=== PATIENT | female | born 1975 | race Caucasian/White ===

== ENCOUNTER 2025-01-14 08:22 | Emergency (ER) | payer BC ==
[~2025-01-14] VITALS: Ht 170.2 cm; Wt 74.0 kg
[2025-01-14 08:24] VITALS: TEMP 98.5
--- NOTE | 2025-01-14 09:33 | Physician Documentation ---
History of Present Illness Chief Complaint: Flank Pain Stated Complaint: UTI SYMPTOMS Time Seen by MD: 09:16 OK to notify your PCP?: Yes Source: patient Mode of Arrival: POV Exam Limitations: no limitations HPI 49-year-old female who is here with right flank pain that started this morning. She states that the pain initially started as contractions states now pain is more constant. Also reports nausea that started this morning and just had a single episode of vomiting in the bathroom here. Patient also reports pain at urethra with urination which started last night and she states she feels that her urine stream is decreased. No prior history of kidney stones. No fever, chills, diarrhea, constipation, cp, sob. Last Menstrual Period: Jan 02, 2025 Medication Reconciliation Allergies: Coded Allergies: No Known Allergies (Unverified , 01/14/25) Past Medical History Last Menstrual Period: Jan 02, 2025 Review of Systems All Other Systems at this time: Reviewed and Negative Physical Exam Vital Signs: Temperature: 98.5, Source: Temporal, Heart Rate: 66, Respiratory Rate: 16, BP: 137/98, Pulse Oximetry: 99, Weight: 74.000 Oxygen Flow Rate: 0 Physical Exam GENERAL: Alert, no acute distress. HEENT: NCAT, EOMI, PERRL, normal oropharynx, DRY oral mucosa. NECK: Supple, trachea midline. CARDIAC: Regular rate and rhythm, no murmurs, rubs, or gallops. Equal distal pu lses. No lower extremity edema, cap refill less than 2 seconds. RESPIRATORY: Equal breath sounds, clear to auscultation bilaterally, no respiratory distress. GASTROINTESTINAL: Non distended, soft, NTTP, No guarding or rebound. BACK: TTP OVER RIGHT FLANK MUSCULOSKELETAL: Normal range of motion. Normal gait. NEUROLOGICAL: Awake, alert, and oriented x 3. SKIN: Warm/dry, no pallor, no rash. PSYCH: Alert and appropriate. Affect congruent with mood. Speech is clear. Good eye contact. Progress Results/Orders Results/Orders Vital Signs 01/14/25 01/14/25 08:24 08:37 Temp 98.5 Pulse 66 Resp 18 16 B/P (MAP) 137/98 Pulse Ox 99 O2 Flow Rate 0 Medical Decision Making Differential Dx:Considerations: Include: AAA, -Complete, - Incomplete, -Inevitable, -Missed, -Threatened, Abruptio placentae, Angina/CT, Aortic dissection, Appendicitis, Bowel obstruction, Cholangitis, Cholelithasis, Constipation, Diverticular disease, Esophageal rupture, Esophagitis, Gastritis/PUD, Gastroenteritis, GI hemorrhage, Hernia, Hepatitis, Inflammatory BD, Ischemic bowel, Ovarian cyst/torsion, Pancreatitis, PID, Porphyria, Trauma, intraabdominal, Urinary obstruction, Urinary tract infection, Urolithiasis, Other Additional Comments PATIENT HAS RIGHT FLANK PAIN WITH ASSOCIATED NAUSEA AND VOMITING MOST CONSISTENT WITH KIDNEY STONE WE WILL PROCEED WITH IMAGING STUDY AND LABS. Departure Time of Disposition: 11: Disposition: HOME / SELF CARE / HOMELESS Impression: Primary Impression: Calculus of kidney Condition: Stable Discharge Instructions: Renal Colic Additional Instructions: F/U WITH YOUR PCP AND HAVE YOUR PCP SEND REFERRAL TO UROLOGY I ALSO SENT REFERRAL TO ONCALL UROLOGIST DR. SANCHEZ YOUR KIDNEY STONE IS AT THE END OF THE URETER SO IT THEN NEEDS TO GO INTO BLADDER AND THEN OUT YOUR KIDNEY STONE IS 3MM IN SIZE, THEY ARE CONSIDERED PASSABLE AT THIS SIZE IF YOU HAVE UNCONTROLLED PAIN, FEVER, UNCONTROLLED VOMITING OR ANY OTHER CONCERNING SYMPTOMS RETURN TO ER Referrals: NO PRIMARY CARE PROVIDER (PCP) EZIO SANCHEZ MD Prescriptions Hydrocodone Bit/Acetaminophen (Hydrocodone-Apap 10-325 Tablet) 10mg/325mg Tablet 1 TAB PO QID PRN PRN for pain for 5 Days, #20 TAB DX: KIDNEY STONE N20.0 Prov: TITUS ARAUZ 01/14/25 Ondansetron HCl (Ondansetron HCl) 4 Mg Tablet 1 TAB PO Q6H PRN PRN for nausea/vomiting, #12 TAB 0 Refills Prov: TITUS ARAUZ 01/14/25 Ibuprofen (Ibuprofen) 800 Mg Tablet 1 TAB PO Q8H for pain for 10 Days, #30 TAB 0 Refills Prov: TITUS ARAUZ 01/14/25 Tamsulosin Hcl* (Flomax*) 0.4 Mg Cap.sr.24h 1 CAP PO DAILY for 30 Days, #30 CAP Prov: TITUS ARAUZ 01/14/25 Education Educated: Patient, Family Educated regarding: diagnosis, treatment, need for follow up Signature Scribe Signature: X Attestation: X TITUS ARAUZ Jan 14, 2025 09:33
[2025-01-14] MEDS: normal saline 1000ML IV soln IVB ONE ×2 (09:54→12:17)
[2025-01-14] MEDS: ondansetron/PF 4mg/2ml inj IV ONE (09:55)
[2025-01-14] MEDS: morphine 4 MG/ML inj SYRINge IV ONE (09:55)
[2025-01-14 10:25] LABS: MEAN PLATELET VOLUME 8.2 FL (7.4-10.4); RED CELL DISTRIBUTION WIDTH 16.6 % (11.5-14.5)
[2025-01-14 10:30] LABS: LEUKOCYTE ESTERASE ,URINE NEGATIVE (Neg); NITRITES, URINE NEGATIVE (Neg); OCCULT BLOOD,URINE MODERATE (Neg)
[2025-01-14 10:30] LABS: CREATININE 0.76 MG/DL (0.40-0.90); TOTAL CARBON DIOXIDE 23.8 MMOL/L (24-32); eCRCL 86 ML/MIN; eGFR 81 ML/MIN
[2025-01-14 10:32] LABS: UA COLLECTION TYPE CLN CATCH MIDSTREAM
[2025-01-14] MEDS ORDERED: iohexol 300mg/ml 100ml inj. ONE (10:33)
[2025-01-14 10:42] LABS: CAL OXALATE CRYSTALS 1+ /HPF (NEGATIVE); HYALINE CASTS 0-3 /LPF (NEGATIVE); MUCUS STRANDS MODERATE /LPF (Neg); SQUAMOUS EPITHELIAL CELL,UR MANY /LPF (FEW)
--- NOTE | 2025-01-14 11:09 | RADIOLOGY REPORT ---
CT CT ABDOMEN PELVIS W/ IV CONTRAST INDICATION: Abdominal Pain EXAM DATE: 01/14/2025 10:39 AM COMPARISON: None RADIATION DOSE: CTDIvol: 17 mGy, DLP: 849 mGy*cm PROCEDURE: Helical CT images were obtained of the abdomen and pelvis with IV contrast Sagittal and co jez reconstructions are provided. ORAL CONTRAST: None. ADDITIONAL IMAGES / REFORMATS: None All CT s cans at this medical facility are performed using dose modulation techniques as appropriate to a perf ormed exam including the following: Automated exposure control was utilized; adjustment of the MA and /or KV according to patient size; and use of iterative reconstruction technique. FINDINGS: LUNG BASE: Normal. LIVER: Mild hepatic steatosis. GALLBLADDER AND BILIARY TREE: Gallstone is seen. No intra- or extrahepatic biliary ductal dilation. PANCREAS: Normal. SPLEEN: Normal. BOWEL: Normal. Normal appendix. ADRENALS: Normal. KIDNEYS AND URETER: There is a 3mm right distal ureteral stone at the ureteral vesicle junction with mild right hydronephrosis and perinephric fat stranding. Additional punctate nonobstructive kidney st ones are seen. BLADDER: Normal. REPRODUCTIVE ORGANS: Normal. LYMPH NODES:No lymphadenopathy. PERITONEUM: No ascites or free air. No other fluid collection. VESSELS: Scattered atherosclerotic calcifications are noted. RETROPERITONEUM: Normal. ABDOMINAL WALL: Normal. BONES: Scattered osseous degenerative changes are noted. IMPRESSION: 3mm right distal ureteral stone at the ureteral vesicle junction with mild right hydronephrosis and p erinephric fat stranding. Additional punctate nonobstructive kidney stones are seen.
[2025-01-14] MEDS: ketorolac trometh 15mg/ml vial 15 MG/ML ML IV ONE (11:25)
[2025-01-14] MEDS ORDERED: HYDR-3973 PO (11:29)
[2025-01-14] MEDS ORDERED: ONDA-103 PO (11:29)
[2025-01-14] MEDS ORDERED: TAMS-55 PO (11:29)
[2025-01-14] MEDS ORDERED: IBUP-1986 PO (11:29)
--- NOTE | 2025-01-14 12:37 | RADIOLOGY REPORT ---
Indication: kidney stone Technique: DI ABDOMEN,SINGLE VIEW(KUB)[id number] Comparison: 01/14/2025 FINDINGS/IMPRESSION: There is retained contrast within the right renal parenchyma and collecting system consistent with ur eteral obstruction as seen on the prior CT. Moderate right hydronephrosis. The 3 mm calculus in the distal right ureter is not well seen likely secondary to the limitations of radiography. Contrast within the bladder. Moderate volume stool within the colon.
[2025-01-14 13:38] VITALS: BP 125/55; PULSE 62; RESP 17; O2SAT 95
== END 2025-01-14 13:40 | disposition home or self-care (01) ==
LOC: ER 08:23
DX: N20.0 Calculus of kidney (principal)
CPT/HCPCS: 36415; 74018; 74177; 80048; 81001; 82948; 85025; 96361; 96374; 96375; 99285; J1885; J2270; J2405; J7030; J7050; Q9967